=== PATIENT | female | born 1935 | race African-American/Black ===

== ENCOUNTER 2016-06-27 02:40 | Inpatient (IN) | payer MEDICARE ==
[~2016-06-27] VITALS: Ht 162.6 cm; Wt 66.1 kg
[~2016-06-27 02:40] MED LIST: ARICEPT5 MG PO; BENICAR40 MG PO; HYDROCODONE-APA1 TAB PO; LIPITOR10 MG PO; METOPROLOL TART50 MG PO; NEURONTIN600 MG PO; NEXIUM40 MG PO; PHOSLO667 MG PO; SENSIPAR30 MG PO; ZESTRIL40 MG PO
--- NOTE | 2016-06-27 02:48 | NUR ---
RECIEVED TO ROOM 2111 FROM [facility] VIA AMBULANCE STRETCHER. PT A&0. RESPERATIONS EVEN ON ROOM AIR. PT WEARING GLASSES AND HAS UPPER AND LOWER SET OF DENTURES IN PLACE. VITALS STABLE. 98.5 TEMP, RESPERATIONS 20, SPO2 98% ON ROOM AIR, BP 134/44. PLACED ON TELEMETRY, 54 SB PER MT. BLOODY DRSG TO RIGHT THIGH AVF, PT STATED THAT, THATS THE REASON SHE CAME TO THE HOSPITAL, SHE WAS SITTING IN HER CHAIR IT JUST STARTED BLEEDING. REMOVED SATURATED DRSG, NO ACTIVE BLEEDING AT THIS TIME, POSTIVE BRUING AND THRILL NOTED. REDRESSED FISTULA WITH 4X4S AND MICROFOAM TAPE. INFORMED PT TO NOTIFY STAFF IMMEDIATELY IF FISTULA STARTS TO BLEED AGAIN, PT STATES UNDERSTANDING. NO OTHER NEEDS AT THIS TIME, BED LOW, CL IN REACH, WILL CONT TO MONITOR.
[2016-06-27 02:50] VITALS: BP 134/44
[2016-06-27] MEDS ORDERED: LANOXIN125 MCG PO (03:01)
[2016-06-27] MEDS ORDERED: MEGACE40 MG PO (03:01)
[2016-06-27] MEDS ORDERED: LOMOTIL TABLET1 TAB PO (03:02)
--- NOTE | 2016-06-27 03:34 | NUR ---
MARYAM 10 1 TAB GIVEN FOR C/O PAIN TO LEFT HIP, RATES PAIN AT AN 8 ON PAIN SCALE.
[2016-06-27 04:00] VITALS: BP 134/44
--- NOTE | 2016-06-27 04:55 | NUR ---
WALL INSULATION SPRAYER AT BEDSIDE TO OBTAIN VITALS, CALL LIHGT IN REACH. WILL CONTINUE WITH PLAN CARE
[2016-06-27 07:10] LABS: BASOPHILS 0.5 % (0.0-2.0); EOSINOPHILS 2.3 % (0-7); HEMATOCRIT 32.7 % (36.0-48.0); HEMOGLOBIN 10.2 g/dL (12-16); IMMATURE GRANULOCYTES 0.4 % (0-5); LYMPHOCYTES 14.8 % (15-50); MCH 29.7 pg (26.0-34.0); MCHC 31.2 g/dL (31.0-37.0); MCV 95.1 fL (80.0-100.0); MEAN PLATELET VOLUME 11.7 fL (7.4-10.4); MONOCYTES 11.3 % (2-11); NEUTROPHILS 70.7 % (40-80); PLATELET COUNT 155 10x3/uL (130-400); RBC 3.44 10x6/uL (4.00-5.40); RDW 15.7 % (11.5-14.5)
[2016-06-27 07:25] LABS: ALBUMIN 2.9 g/dL (3.4-5.0); ANION GAP 19.6 mmol/L (8-16); BILIRUBIN - TOTAL 0.38 mg/dL (0.2-1.3); CALCIUM 8.7 mg/dL (8.5-10.1); CARBON DIOXIDE 25.8 mmol/L (21.0-32.0); CREATININE - SERUM 8.9 mg/dL (0.6-1.3); PHOSPHOROUS 6.5 mg/dL (2.5-4.9); POTASSIUM - SERUM 4.4 mmol/L (3.5-5.1)
[2016-06-27 08:16] VITALS: BP 126/86
--- NOTE | 2016-06-27 10:04 | NUR ---
IV access-22 gauge catheter inserted in right wrist area for saline lock. Domonique Laughlin RN
--- NOTE | 2016-06-27 10:57 | NUR ---
Patient Name: ASHOK HEARD Admission Status: Elective Accout number: [id number] Admission Date: 06-27-2016 : 1935 Admission Diagnosis: Attending: DOT Current LOS: 1 Anticipated DC Date: Planned Disposition: Home Primary Insurance: MEDICARE A & B Discharge Planning Comments: * Is the patient Alert and Oriented? Yes 0 * How many steps to enter\exit or inside your home? NONE 0 * PCP DR. HÉCTOR HOLLOWAY [place] 0 * Pharmacy [facility] IN [place] 0 * Preadmission Environment Home with Family 0 * ADLs Partial Dependent 0 * Partial ADLs (Assistance needed) Bathing Medication Management Transfers 0 * Equipment Walker Wheelchair 0 * Other Equipment NO MEDICAL EQUIPMENT PROVIDER PREFERENCE 0 * List name and contact numbers for known caregivers / representatives who currently or will assist patient after discharge: MAGY STILL, 0 * Community resources currently utilized Other Private Duty Care 0 * Please name any agencies selected above. OUTPATIENT DIALYSIS, [facility], M/W/F, 1015 AM, [facility] MEDICAID CAREGIVERS (24 HOURS PER WEEK) DAUGHTER AND OTHER PAID CAREGIVER 0 * Additional services required to return to the preadmission environment? No 0 * Can the patient safely return to the preadmission environment? Yes 0 * Has this patient been hospitalized within the prior 30 days at any hospital? No 0 CM MET WITH PT AND FAMILY IN ROOM TO DISCUSS DISCHARGE PLANNING AND NEEDS. PT REPORTS LIVING AT HOME INDEPENDENTLY WITH HER ADULT (OLDEST) SON. PT HAS WALKER AND WHEELCHAIR WITH NO MEDICAL EQUIPMENT PROVIDER PREFERENCE. PT HAS PAID MEDICAID CAREGIVER SERVICES PROVIDED BY HER DAUGHTER AND ANOTHER LADY FROM MEDICAID, APPROXIMATELY 24 HOURS PER WEEK. PT'S SON IS WORKING THROUGH THE DAY AND HER DAUGHTER AND THE OTHER LADY CHECK ON PT THROUGHOUT THE DAY. PT WAS HOME ALONE AND TOOK THE WRONG MEDICATION ON HER OWN. PT'S OTHER SON REPORTS THE PROBLEM IS SOLVED, HE HAS DECIDED TO MOVE IN WITH PT AND ASSIST IN HER CARE. CM DISCUSSED AVAILABILITY OF HOME HEALTH, REHAB SERVICES AND MEDICAL EQUIPMENT. PT DENIES DISCHARGE NEEDS AT THIS TIME, PT AND FAMILY REFUSE ANY PLACEMENT OUTSIDE OF PT'S HOME. PT'S SON WILL PICK PT UP FOR DISCHARGE HOME. PT PLANS TO DISCHARGE HOME WITH CONTINUED ASSISTANCE OF FAMILY AT HOME, DENIES DISCHARGE NEEDS AT THIS TIME. CM TO FOLLOW AND ASSIST NEEDED. Rn Pediatric: Paul Slaughter
[2016-06-27 11:37] VITALS: BP 99/31
[2016-06-27 12:02] VITALS: Ht 162.6 cm; Wt 66.1 kg
--- NOTE | 2016-06-27 14:11 | NUR ---
FIBRILLAR DRSG PLACED TO R.THIGH FISTULA SITE PER ORDERS. 4X4S PLACED OVER IT, WRAPPED WITH KERLIX THEN TIGHTLY WRAPPED ANT BANDAGE. PT RESTING IN BED DENIES ANY CURRENT PAIN OR NEEDS. DAUGHTER AT BEDSIDE. WILL CPOC.
[2016-06-27 15:42] LABS: APTT 34.6 SECONDS (22.8-39.4); INR 1.28 (0.85-1.17); PROTIME 15.8 SECONDS (11.6-15.0)
[2016-06-27 15:53] VITALS: BP 191/61
--- NOTE | 2016-06-27 17:39 | NUR ---
UPON ADMINISTERING PTS MEDICATION NOTED PT TO BE VERY LETHARGIC. I HAD JUST WOKE PT UP SO TRIED AROUSING HER HOWEVER PT REMAINED LETHARGIC. VSS WITH CHRONIC HTN. TELEMETRY RUNNING SR AT 74. PT IS CONFUSED AND THOUGHT SHE WAS AT HOME, PT WOULDNT FOLLOW SIMPLE COMMAND TO SWALLOW THROUGH STRAW AND DRINK AND UNABLE TO DAY GUARD HANDS. CALLED RAPID AND TEAM IN ROOM ASSESSING. ABGS ORDERED AND COMPLETED, ALL IN NORMAL RANGE. CT OF HEAD ORDERED STAT AND PT LEAVING FOR IT NOW. WILL CTM.
--- NOTE | 2016-06-27 18:23 | NUR ---
PT BACK FROM CT. INCONTINENT OF LOOSE STOOL. CLEANED PT UP AND PROVIDED NEW LINENS. PT C/O BEING COLD PROVIDED BLANKET VIA WARMER. CALMED DAUGHTER DOWN AT BEDSIDE. PT IS STILL CONFUSED. WILL CTM.
[2016-06-27 20:00] VITALS: BP 127/54
[2016-06-28] VITALS: BP 107/35
--- NOTE | 2016-06-28 00:35 | NUR ---
RESTING WITH EYES CLOSED, RESPERATIONS EVEN, NO S/S DISTRESS NOTED.
--- NOTE | 2016-06-28 04:23 | NUR ---
PT LAYING IN BED NO DISTRESS OBSERVED CALL LIGHT IN REACH SRX2 BED LOW AND LOCKED WILL MONITOR
[2016-06-28 05:52] LABS: ANION GAP 21.8 mmol/L (8-16); CALCIUM 8.3 mg/dL (8.5-10.1); CARBON DIOXIDE 25.9 mmol/L (21.0-32.0); CREATININE - SERUM 10.7 mg/dL (0.6-1.3); PHOSPHOROUS 7.9 mg/dL (2.5-4.9); POTASSIUM - SERUM 4.7 mmol/L (3.5-5.1)
[2016-06-28 06:07] LABS: BASOPHILS 0.1 % (0.0-2.0); EOSINOPHILS 0 % (0-7); HEMATOCRIT 34.5 % (36.0-48.0); HEMOGLOBIN 10.9 g/dL (12-16); IMMATURE GRANULOCYTES 0.4 % (0-5); LYMPHOCYTES 6.1 % (15-50); MCH 29.6 pg (26.0-34.0); MCHC 31.6 g/dL (31.0-37.0); MCV 93.8 fL (80.0-100.0); MEAN PLATELET VOLUME 12.9 fL (7.4-10.4); MONOCYTES 11.5 % (2-11); NEUTROPHILS 81.9 % (40-80); PLATELET COUNT 180 10x3/uL (130-400); RBC 3.68 10x6/uL (4.00-5.40); RDW 15.6 % (11.5-14.5)
[2016-06-28 06:17] LABS: WBC 14.5 10x3/uL (4.8-10.8)
--- NOTE | 2016-06-28 06:30 | NUR ---
PREOP MEDS GIVEN ORDERED, TRASH HAULER AT BED SIDE, HIBICLENSE BATH AND LINEN CHANGE COMPLETE. STAT CHEST XRAY DONE, RESULTS PLACED ON CHART.
[2016-06-28 07:58] VITALS: BP 115/63
--- NOTE | 2016-06-28 08:15 | NUR ---
PT RESTING IN BED WITH EYES OPEN CALL LIGHT IN REACH WILL MONITER
--- NOTE | 2016-06-28 08:30 | NUR ---
PT LEFT TO GO TO OR FOR PROCEDURE
--- NOTE | 2016-06-28 09:40 | NUR ---
IN SURGERY AT THIS TIME. WILL CONT. PLAN OF CARE.
--- NOTE | 2016-06-28 09:48 | NUR ---
FIRST STENT TO SHORT, SECOND STENT USED FOR INTENDID PURPOSE, SEE PHYSICIAN NOTES. STENT SIZING NOT AVAILABLE IN THIS CHARGE PROGRAM. SEE PAPER CHART.
[2016-06-28 11:11] VITALS: BP 133/88
--- NOTE | 2016-06-28 11:45 | NUR ---
PT RETURNED FROM OR BLOOD PRESSURE STABLE TEMP 101.1 ORDER FOR BLOOD CULTURES ORDERED PT HAS BANDAGE TO RIGHT LEG AND HEMESPLIT TO LEFT LEG
[2016-06-28 12:18] VITALS: BP 133/88
[2016-06-28 16:16] VITALS: BP 115/58
--- NOTE | 2016-06-28 16:25 | NUR ---
PT ON DIALYSIS AND COMPLAINED OF CHEST PAIN AND DIALYSIS NURSE STATED SHE WAS HAVING PROBLEMS WITH HER DIALYSIS ACESS DR VARMA WROTE NEW ORDERS WILL GIVE NITRO FOR CHEST PAIN PER ORDER WILL MONITER
--- NOTE | 2016-06-28 17:00 | NUR ---
PT STATES CHEST NOT HURTING ANYMORE DOES NOT WANT NITRO
--- NOTE | 2016-06-28 17:52 | NUR ---
DIALYSIS NURSE INSTILLING CATHFLOW INTO HEMESPLIT IN LEFT THIGH
--- NOTE | 2016-06-28 19:57 | NUR ---
Received patient resting quietly in bed with family at bedside (daughter, [id number], and grandson). Oxygen on @5L/min via nasal cannula. Oriented to person at this time, remains confused and drowsy. school bus monitor on. HR = 83/min, sinus rhythm. BP = 99/46, pulse ox 96%, R=22/min. No complaints of pain or discomfort at this time.
[2016-06-28 20:02] VITALS: BP 99/46
--- NOTE | 2016-06-28 21:05 | NUR ---
Given HS medications crushed in applesauce, daughter states patient has ate poorly today. Left pudding cup and vanilla wafers with family to try to give to patient. Dressings assessed. Right thigh dressing clean, dry and intact. Left thigh hemisplit in place with two lumens, dressing over site is clean, dry and intact.
--- NOTE | 2016-06-29 00:40 | NUR ---
Pulse ox machine on, patient was registering 94% to 100%. Tech was bathing patient in bed and oxygen sat steadily decreased. Respiratory called as sat down to 60%, patient arousable and talking to staff, encouraged to take deep breaths. Resp. tech registered low 90%s with her portable pulse ox. Removed pulse ox tip and replaced it in another position, now continuous pulse ox machine is registering 97-100%.
[2016-06-29 01:39] VITALS: BP 88/46
--- NOTE | 2016-06-29 01:52 | NUR ---
Complains of pain generalized rates as 01/22. Given [place] 10-325 tab crushed in applesauce. Will monitor.
--- NOTE | 2016-06-29 02:29 | NUR ---
Patient incontinent of BM, incontinent care done.
--- NOTE | 2016-06-29 02:50 | NUR ---
Eyes closed, deemed to be sleeping, [place] tab given earlier for pain deemed effective.
--- NOTE | 2016-06-29 04:17 | NUR ---
Reviewed telemetry readings with Circuit Court Clerk, Telemetry has been in SR and ST with HR in the 80s, 90s and low 100s up to 118/min.
[2016-06-29 04:37] VITALS: BP 106/51
[2016-06-29 05:54] LABS: BASOPHILS 0.1 % (0.0-2.0); EOSINOPHILS 0 % (0-7); IMMATURE GRANULOCYTES 0.5 % (0-5); LYMPHOCYTES 4.1 % (15-50); MCHC 31.9 g/dL (31.0-37.0); MONOCYTES 6.1 % (2-11); NEUTROPHILS 89.2 % (40-80); RDW 15.5 % (11.5-14.5); WBC 14.7 10x3/uL (4.8-10.8)
[2016-06-29 06:13] LABS: HEMATOCRIT 27.3 % (36.0-48.0); HEMOGLOBIN 8.7 g/dL (12-16); PLATELET COUNT 137 10x3/uL (130-400)
[2016-06-29 06:22] LABS: ANION GAP 23.8 mmol/L (8-16); CALCIUM 7.8 mg/dL (8.5-10.1); CARBON DIOXIDE 23.5 mmol/L (21.0-32.0); CREATININE - SERUM 10.8 mg/dL (0.6-1.3); PHOSPHOROUS 9.5 mg/dL (2.5-4.9); POTASSIUM - SERUM 4.3 mmol/L (3.5-5.1)
--- NOTE | 2016-06-29 07:47 | NUR ---
DAUGHTER IN ROOM HELPING PATIENT WITH BREAKFAST. PATIENT AWAKE/ALERT TO SELF.CONTINUED PULSE OX RUNNING. PO AT 100% DENIES ANY NEEDS AT THIS TIME. CALL LIGHT WITHIN REACH
[2016-06-29 08:00] VITALS: BP 113/40
--- NOTE | 2016-06-29 09:45 | NUR ---
IV PATENT. FAMILY AT BS. ISOLATION PRECAUTINS CONT. WILL MONITOR NEEDS.
--- NOTE | 2016-06-29 09:47 | NUR ---
BLOOD PRESURE MEDICATIONS HELD DUE TO B/P OF 113/40.
--- NOTE | 2016-06-29 11:30 | NUR ---
DIALYSIS IN ROOM. SETTING UP FOR DIALYSIS TX.
[2016-06-29 12:09] VITALS: BP 142/70
--- NOTE | 2016-06-29 13:15 | NUR ---
DIALYSIS NURSE CALLED THIS NURSE INTO ROOM. PATIENTS BLOOD PRESSURE DROPED TO 42/29. DIALYSIS TX CALLED ET TALKED TO DR VARMA. DR VARMA TOLD DIALYSIS TX TO STOP DIALYSIS TX. FAMILY IN ROOM WITH PATIENT. FLORENCIA RICKETTS, SUPERVIOSOR AND THIS NURSE IN ROOM.
--- NOTE | 2016-06-29 14:10 | NUR ---
ORDER IN FOR CVL. DR BENITEZ CALLED. STATED TO CALL ANDERSON CUT OUT PRESS OPERATOR NURSE TO INSERT A PICC LINE
--- NOTE | 2016-06-29 16:15 | NUR ---
THIS NURSE TALKED WITH FAMILY. FAMILY STATES THAT MOTHER DOES NOT WANT TO BE RESUSITATED. DR VARMA CALLED. NEW ORDER FOR DNR.
--- NOTE | 2016-06-29 16:16 | NUR ---
FAMILY REMAINS IN ROOM WITH PATIENT. PATIENT RESP. HARD, LABORED. LUNG SOUNDS DEMISHED. PATIEHT IS LETHERIC. UNRESPONSIVE TO VOICE OR STIMULA. .
--- NOTE | 2016-06-29 17:25 | NUR ---
DR DARBY HERE AND TALKED WITH FAMILY. PATIENT IS COMFORT CARE ONLY. IV FLUIDS REMOVED. TELEMETRY REMOVED. PRN MORPHINE GIVEN IV.
--- NOTE | 2016-06-29 20:22 | NUR ---
RECEIVED PT LYING IN BED WITH FAMILY AT BEDSIDE. PT REMAINS UNRESPONSIVE TO VERBAL STIMULI. RESPIRATIONS LABORED. IV NOTED TO RIGHT WRIST S/L. FAMILY MEMBERS DENIES NEEDS AT THIS TIME. BED LOW. PHONE AND CALL LIGHT IN REACH. SRX2.
--- NOTE | 2016-06-29 21:05 | NUR ---
REPOSITIONED PT TO LEFT SIDE. FAMILY DENIES NEEDS AT THIS TIME. BED LOW. PHONE AND CALL LIGHT IN REACH. SRX2.
--- NOTE | 2016-06-29 23:01 | NUR ---
FAMILY MEMBERS AT BEDSIDE. NO NEEDS NOTED AT THIS TIME.
--- NOTE | 2016-06-29 23:34 | NUR ---
PT RESTING QUIETLY WITH EYES CLOSED. FAMILY MEMBER AT BEDSIDE. RESPIRATIONS LABORED. NO NEEDS NOTED AT THIS TIME.
--- NOTE | 2016-06-30 00:50 | NUR ---
PT RESTING QUIETLY WITH EYES CLOSED. RESPIRATIONS EVEN. FAMILY MEMBER AT BEDSIDE. NO NEEDS NOTED AT THIS TIME. BED LOW. PHONE AND CALL LIGHT IN REACH. SRX2.
--- NOTE | 2016-06-30 01:30 | NUR ---
PT HAD MODERATE AMOUNT OF DIARRHEA. CLEANED PT UP AND REPOSITIONED TO RIGHT SIDE. RESPIRATIONS LABORED. FAMILY MEMBER AT BEDSIDE. NO NEEDS NOTED AT THIS TIME. BED LOW. PHONE AND CALL LIGHT IN REACH. SRX2.
--- NOTE | 2016-06-30 02:35 | NUR ---
PT RESTING QUIETLY WITH FAMILY MEMBER AT BEDSIDE. RESPIRATIONS EVEN. NO NEEDS NOTED AT THIS TIME. BED LOW. PHONE AND CALL LIGHT IN REACH. SRX2.
--- NOTE | 2016-06-30 03:04 | NUR ---
ATROPINE DROPS ADMINISTERED PO PER ORDERS FOR INCREASED SECRETIONS. FAMILY MEMBER AT BEDSIDE. DENIES NEEDS AT THIS TIME. BED LOW. PHONE AND CALL LIGHT IN REACH. SRX2.
--- NOTE | 2016-06-30 03:57 | NUR ---
PT RESTING QUIETLY IN BED WITH FAMILY MEMBER AT BEDSIDE. RESPIRATIONS EVEN. NO NEEDS NOTED AT THIS TIME.
--- NOTE | 2016-06-30 04:43 | NUR ---
MESFIN MENA PAGED PER FAMILY REQUEST. EVIN NOTIFIED, DOES NOT MEET CRITERIA. [facility] IN [place] NOTIFIED. DR. MART HAS PRONOUNCED. NURSE CÁRDENAS AT BEDSIDE WITH FAMILY. WILL CONTINUE TO MONITOR.
--- NOTE | 2016-06-30 05:11 | NUR ---
PERIPHERAL IV REMOVED AND HEMOSPLIT REMOVED, DRESSINGS INTACT. REPOSITIONED TO SUPINE POSITION. DENTURES IN MOUTH PER FAMILY REQUEST. STREET CLOTHES, SHOES AND GLASSES IN BELONGING BAG.
--- NOTE | 2016-06-30 05:22 | NUR ---
CHAPLAIN HOFFMAN HERE. COUNSELLED DAUGHTER AND GRANDSON.
--- NOTE | 2016-06-30 06:19 | NUR ---
HOME HERE TO RECEIVE PT. RECORD OF COMPLETED. FAXED TO REVIEW NURSE.
--- NOTE | 2016-07-08 10:18 | OP ---
PATIENT NAME: ASHOK HEARD MEDICAL RECORD: [id number] :35 LOCATION:D.M2 D.2112 ADMISSION DATE:06/27/16 SURGEON: ROXIE BACA MD DATE OF OPERATION: 06/28/2016 PREOPERATIVE DIAGNOSIS: Infected bleeding pseudoaneurysm of right femoral PTFE loop AV graft. ADDITIONAL DIAGNOSIS: End-stage renal disease and dependence on hemodialysis. REFERRING PHYSICIAN: Jerry Her MD. OPERATION PERFORMED: Right thigh AV fistulogram done with ultrasound-guided access, balloon angioplasty of the proximal central venous stenosis, dilating in 90% stenosis of the iliac vein distinct and proximal to the venous anastomosis of the graft to the common femoral vein and then repair of pseudoaneurysm by placement of a 10 cm Roscoe Viabahn PTFE stent graft and additionally a percutaneous evacuation of perigraft hematoma, obtaining cultures of same for aerobic and anaerobic organisms. Then in addition, also insertion of a left common femoral vein tunneled HemoSplit dialysis catheter done with ultrasound as well as fluoroscopic guidance and all of the procedures conducted under local 1% lidocaine with epinephrine and monitor anesthesia per TREAD BOOKER. PREOPERATIVE NOTE: Admitted to the hospital, I think June 26, the patient began to have spontaneous hemorrhaging from a side of repeated puncture of a right femoral loop PTFE AV graft. On Monday after her last dialysis on Monday, she was admitted to the hospital here and I saw her in consultation yesterday. At that time, she was not actively bleeding, although it was apparent that she had a pseudoaneurysm at this site of hemorrhage. Since that time, she has suffered an altered state of consciousness and may possibly have had a CVA or similar neurologic event and CT scan done yesterday failed to reveal any signs of intracranial mass or hemorrhage. She was brought to the operating room at this time to perform a fistulogram and likely endovascular stent repair of the pseudoaneurysm and likely insertion of a tunneled dialysis catheter. The patient has been on dialysis for a number of years and has had multiple prior accesses with a previous grafts or fistulas in both arms and now in the right thigh. I do not believe that she has had fistula or any other access in the left groin. DESCRIPTION OF PROCEDURE: With the patient under monitored anesthesia per TREAD BOOKER, she was placed in supine position and both groins prepped and draped in sterile manner. Skin and subcutaneous tissues were anesthetized with lidocaine as needed. I examined the patient's right thigh graft with ultrasound and noted the presence of an endovascular stent in the venous anastomosis and the presence of pseudoaneurysmal deterioration in the arterial limb corresponding to the area of hemorrhage and a similar change in the venous limb at 5 repeated puncture. I accessed the graft near the arterial anastomosis directed in an antegrade fashion using micropuncture technique, which led up to placement of a 6-[place] introducer and later during the procedure, that was replaced with an 7-[place] introducer to facilitate insertion of the stent. Contrast injection revealed the areas of pseudoaneurysm, no active bleeding or extravasation and above and separate and distinct from the venous anastomosis, there was about a 90% stenosis of the external iliac vein. The patient was heparinized with 2000 units of heparin and the iliac vein stenosis, dilated first with an 8 and then OPERATIVE REPORT [id number] ASHOK HEARD with a 12-mm angioplasty balloon with good result. The area of pseudoaneurysmal deterioration, which had been the source of bleeding was then treated first with an application of a 5 cm long Viabahn 6 mm diameter stent graft, this failed to adequately cover the area and it was necessary to implant through that initial stent another 7 mm diameter Viabahn stent graft only this one was 10 cm in diameter and did indeed adequately cover the needed field. Repeated contrast injection revealed no filling of the pseudoaneurysm and no extravasation and good venous runoff. The introducer was removed and hemostasis obtained at the puncture site with a smgisf-ru-pozgr 4-0 Prolene. Heparin was not reversed. I then evacuated the thrombus from under the ulcerated area over the arterial limb pseudoaneurysm and found that there was a cavity there and I thought that it was likely infected. This was irrigated with saline and there was no bleeding. The cavity was then packed with iodoform gauze. My thought was that this area probably should be more aggressively debrided or widely excised and possibly even the arterial limb of the graft replaced with a new PTFE segment and although I thought the patient's condition was not stable or suitable for that to be carried out today. Sterile dressings were applied and the left groin exposed and using ultrasound guidance and micropuncture technique, I was able to cannulate the left common femoral vein and there was a great deal of scarring in the area and I believe the patient has likely had catheter access here before, so re-access was a bit difficult. I was able to insert a series of guidewires and dilators, which led up to the placement of a HemoSplit dilator peel-away introducer, I chose a 35 cm long HemoSplit and made a separate entry site for it on the anterior thigh and pulled it through the subcutaneous tunnel and inserted it through the peelaway sheath as the peelaway sheath was removed. The under fluoroscopy, the catheter tend to buckle on itself and with some manipulation, I was able to straighten the catheter and advanced it up into the inferior vena cava. Both lumens were then accessed and aspirated, free return of blood confirmed from each. They were then flushed with saline and then dilute heparin lock solution, clamped and capped. The groin incision was closed with interrupted inverted 3-0 Vicryl and Dermabond glue and the catheter sutured to the skin near the entry site with 2-0 silk and Dermabond glue sealed by the entry site and both sites were then dressed with Maxorb Ag, Tegaderm and Cavilon skin prep. The patient was then returned to the recovery room in stable condition. Blood loss during the operation had been indeed trivial, almost nil and was unreplaced. All sponges, instruments and needles were accounted for. No drain was used other than an quarter inch iodoform gauze pack in the pseudoaneurysm hematoma wound. PLAN: The patient was given vancomycin today and I recommend she be continued on appropriate Gram-positive spectrum antibiotic coverage, pending the results of those cultures and we should consider her AV graft to be infected and she should have a terminal gauger course of antibiotics. When she is more stable neurologically as well as medically, otherwise she should be returned to the operating room for more aggressive treatment and possible replacement of the involved segment of her right thigh graft. TRANSINT:[id number] Voice Confirmation ID: [id number] DOCUMENT ID: [id number] OPERATIVE REPORT [id number] ASHOK HEARD JAMES MD at 1018 CC: JERRY HER MD [id number] DICTATION DATE: 06/28/16 1050 SOFTWARE REVERSE ENGINEER: 06/28/16 1828 DIS IN 06/30/16 [facility] [address] [place] [address]
--- NOTE | 2016-07-29 07:06 | DS ---
PATIENT:ASHOK HEARD :35 MEDICAL RECORD: [id number] DISCHARGE SUMMARY ADMISSION DATE: 06/27/16 DISCHARGE DATE: 06/30/16 SUMMARY CONSULTATIONS: Dr. Arias with general surgery. SIGNIFICANT TESTS AND PROCEDURES: On 06/27/2016, head CT with no acute findings. HOSPITAL COURSE: The patient is an 80-year-old female with a history of end-stage renal disease on hemodialysis 3 days a week at [facility]. She presented with right femoral dialysis access bleeding and Dr. Arias was consulted for intervention. She was also found to have an elevated Digoxin level of almost 4 with some confusion. She was too unstable for hemodialysis the first few days during her admission. On June 28, Dr. Arias performed a fistulogram with balloon angioplasty and took cultures of hematoma. She was started on IV vancomycin. The cultures later grew MRSA in which vancomycin was sensitive. On June 29, while on hemodialysis, the patient had chest pain and was unstable and dialysis was stopped, which is the same symptoms she had the day before on dialysis. She was unable to receive any hemodialysis due to the chest pain. The family was at the bedside and decided to make the patient a DNR and make her comfort care, taking her off hemodialysis. On 06/30/2016 at 4:30 a.m., the patient was found pulseless and Dr. Gomez pronounced the patient at 4:31 a.m. TRANSINT:[id number] Voice Confirmation ID: [id number] DOCUMENT ID: [id number] Dictated By: KEISHA FAUSTIN I have interviewed/examined the above patient and agree with these documented findings. JASEN LICEA MD at 0706 at 1658 CC: [id number] DICTATION DATE: 07/22/16 1246 INSTRUMENT MAN: 07/23/16 0235 DIS IN 06/30/16 [facility] [address] [place] [address]
== END 2016-06-30 14:35 | DRG 252 ==
LOC: D.M2 02:40
PROVIDERS: Surgery; ADMIT Internal Medicine Nephrology
PROC: 5A1D60Z (ICD-10-PCS; principal; 2016-06-27)
PROC: 067F3ZZ Dilation of Right External Iliac Vein, Percutaneous Approach (ICD-10-PCS; 2016-06-28)
PROC: B41F1ZZ Fluoroscopy of Right Lower Extremity Arteries using Low Osmolar Contrast (ICD-10-PCS; 2016-06-28)
PROC: 06U Lower Veins, Supplement (ICD-10-PCS; 2016-06-28)
PROC: 06HN33Z Insertion of Infusion Device into Left Femoral Vein, Percutaneous Approach (ICD-10-PCS; 2016-06-28)
PROC: 067F3DZ Dilation of Right External Iliac Vein with Intraluminal Device, Percutaneous Approach (ICD-10-PCS; 2016-06-28)
PROC: B54DZZA Ultrasonography of Bilateral Lower Extremity Veins, Guidance (ICD-10-PCS; 2016-06-28)
PROC: B51B1ZA Fluoroscopy of Right Lower Extremity Veins using Low Osmolar Contrast, Guidance (ICD-10-PCS; 2016-06-28)
DX: T82.7XXA Infection and inflammatory reaction due to other cardiac and vascular devices, implants and grafts, initial encounter (principal); N18.6 End stage renal disease; G93.41 Metabolic encephalopathy; J15.9 Unspecified bacterial pneumonia; I12.0 Hypertensive chronic kidney disease with stage 5 chronic kidney disease or end stage renal disease; F05 Delirium due to known physiological condition; Y83.8 Other surgical procedures as the cause of abnormal reaction of the patient, or of later complication, without mention of misadventure at the time of the procedure; I72.1 Aneurysm of artery of upper extremity; Z99.2 Dependence on renal dialysis; D63.1 Anemia in chronic kidney disease; E78.5 Hyperlipidemia, unspecified; F03.90 Unspecified dementia, unspecified severity, without behavioral disturbance, psychotic disturbance, mood disturbance, and anxiety; Z66 Do not resuscitate; E83.39 Other disorders of phosphorus metabolism; J44.9 Chronic obstructive pulmonary disease, unspecified